=== PATIENT | female | born 1985 | race Caucasian/White ===

== ENCOUNTER 2022-12-16 02:06 | Day surgery (SDC) | payer OTHER ==
[2022-12-16 02:30] VITALS: BMI 40.8
[2022-12-16] MEDS ORDERED: Lactated Ringer's 500 ML IV SCH (03:15)
== END 2022-12-16 05:00 | disposition home or self-care (01) ==
LOC: CSHLD/OP 02:06
PROVIDERS: ATTEND Obstetrics & Gynecology
DX: O46.93 Antepartum hemorrhage, unspecified, third trimester (principal); O99.891 Other specified diseases and conditions complicating pregnancy; M54.50 Low back pain, unspecified; O99.343 Other mental disorders complicating pregnancy, third trimester; F43.10 Post-traumatic stress disorder, unspecified; F53.1 Puerperal psychosis; O24.419 Gestational diabetes mellitus in pregnancy, unspecified control; O34.211 Maternal care for low transverse scar from previous cesarean delivery; O36.8330 Maternal care for abnormalities of the fetal heart rate or rhythm, third trimester, not applicable or unspecified; R00.0 Tachycardia, unspecified; O23.593 Infection of other part of genital tract in pregnancy, third trimester; B37.31 Acute candidiasis of vulva and vagina; Z3A.32 32 weeks gestation of pregnancy; Z79.82 Long term (current) use of aspirin; Z79.899 Other long term (current) drug therapy; Z22.330 Carrier of Group B streptococcus
CPT/HCPCS: 36415; 80053; 81001; 85025; 87086; 87480; 87510; 87660; 96360; 99284

== ENCOUNTER 2023-02-01 16:26 | Inpatient (IN) | payer OTHER ==
[2023-02-01] MEDS ORDERED: hydrALAZINE 20 MG/ML VIAL SLOW IVP PRN (16:49)
[2023-02-01] MEDS ORDERED: Acetaminophen 500 MG TAB PO SCH (18:15)
[2023-02-01] MEDS ORDERED: Cyclobenzaprine 10 MG TAB PO SCH (18:15)
[2023-02-01 19:13] LABS: Bilirubin Neg (Negative); Blood, Urine Negative (Negative); Clarity Clear (Clear); Glucose, Urine (Dipstick) Normal (Negative); Ketone, Urine 15 mg/dL (Negative); Leukocyte Negative (Negative); Nitrite Negative (Negative); Protein, Urine (Dipstick) 15 mg/dl (Neg-Trace); Urobilinogen Normal mg/dL (Less than 2)
[2023-02-01 19:35] LABS: Bacteria/HPF 1+ HPF (None Seen); CAUTI Indications for Culture Pregnancy; Calcium Oxalate Crystals Rare HPF (None Seen); Mucous/LPF 2+ LPF (<2+); RBC/HPF 0-3 HPF (0-3); Squamous Epithelial 0-3 HPF (0-3); WBC/HPF 0-3 HPF (0-3)
[2023-02-01 19:36] LABS: Urine Culture Reflex Yes Yes
[2023-02-01 20:58] VITALS: BMI 40.6
[2023-02-01] MEDS ORDERED: Lorazepam 2 MG/ML VIAL SLOW IVP PRN (21:09)
[2023-02-01] MEDS ORDERED: Famotidine/PF 20 mg/2ml Vial SLOW IVP PRN (21:09)
[2023-02-01] MEDS ORDERED: Calcium Gluc 4.6 MEQ/10 ML (100 MG/ML) SLOW IVP PRN (21:09)
[2023-02-01] MEDS ORDERED: Carboprost 250 MCG/ML AMP IM PRN (21:09)
[2023-02-01] MEDS ORDERED: Bicitra 30 ML UDCUP PO PRN (21:09)
[2023-02-01] MEDS ORDERED: Promethazine HCl 25 MG/ML VIAL IM PRN ×2 (21:09→23:43)
[2023-02-01] MEDS ORDERED: Tranexamic Acid 1,000 MG/10 ML VIAL IVP PRN (21:09)
[2023-02-01] MEDS ORDERED: Ondansetron PF 4 MG/2 ML Vial IVP PRN ×3 (21:09→23:43)
[2023-02-01] MEDS ORDERED: Misoprostol 200 MCG TAB PR PRN (21:09)
[2023-02-01] MEDS ORDERED: Docusate 100 MG CAP PO PRN (21:09)
[2023-02-01] MEDS ORDERED: Oxytocin 30 units/NS 500 ML 500 ML IV SCH (21:15)
[2023-02-01] MEDS ORDERED: CEFAZOLIN 2 GM in Sodium Chloride 0.9% 100 ML IVPB SCH (21:15)
[2023-02-01] MEDS ORDERED: Azithromycin 500 MG in Sodium Chloride 0.9% 250 ML 250 ML IVPB SCH (21:30)
[2023-02-01 22:05] LABS: Hematocrit 36.6 % (34.9-44.5); Hemoglobin 12.2 g/dL (12.0-15.5); Mean Corpuscular HGB CONC 33.3 g/dL (32.0-36.0); Mean Corpuscular Hemoglobin 29.8 pg (27.0-33.0); Mean Corpuscular Volume 89.5 fl (81.6-98.3); Mean Platelet Volume 10.9 fl (7.4-10.4); Platelet Count 201 10x3/uL (150-450); RBC Distribution Width 13.7 % (11.5-14.5); Red Blood Cell (RBC) Count 4.09 10x6/uL (3.90-5.03); White Blood Cell (WBC) Count 8.1 10x3/uL (3.5-10.5)
[2023-02-01] MEDS ORDERED: Oxytocin 10 UNITS/ML VIAL ONE (22:12)
[2023-02-01] MEDS ORDERED: Morphine PF 10 MG/10 ML VIAL ONE (22:12)
[2023-02-01] MEDS ORDERED: fentaNYL 50 mcg/mL 1 mL Vial ONE (22:12)
[2023-02-01 22:13] LABS: Glucose 76 mg/dL (70-105)
[2023-02-01] MEDS ORDERED: PHENYLEPHRINE-NS 100 MCG/ML 10 ML SYRINGE ONE (22:30)
[2023-02-01] MEDS ORDERED: Ondansetron PF 4 MG/2 ML Vial ONE (22:39)
[2023-02-01] MEDS ORDERED: Moisturizing Cream (Eucerin) 113 GM JAR TOP PRN (23:43)
[2023-02-01] MEDS ORDERED: HYDROmorphone 0.5 MG/0.5 ML SYRINGE SLOW IVP PRN (23:43)
[2023-02-01] MEDS ORDERED: Meperidine HCl/PF 25 MG/ML VIAL SLOW IVP PRN (23:43)
[2023-02-01] MEDS ORDERED: Promethazine HCl 25 MG SUPP PR PRN (23:43)
[2023-02-01] MEDS ORDERED: Naloxone HCl 0.4 mg/ml Vial IV PRN (23:43)
[2023-02-01] MEDS ORDERED: Naloxone HCl 0.4 mg/ml Vial IVP PRN ×2 (23:43)
[2023-02-01] MEDS ORDERED: fentaNYL 50 mcg/mL 1 mL Vial SLOW IVP PRN (23:43)
[2023-02-01] MEDS ORDERED: Ketorolac Tromethamine 30 MG/ML VIAL IVP SCH (23:45)
[2023-02-01] MEDS ORDERED: Communication Order-Pharmacy FS SCH (23:45)
[2023-02-01 23:49] LABS: Syphilis Antibody Nonreactive (Nonreactive); Syphilis Antibody Index 0.04 S/CO (<1.00 Non-Reactive)
[2023-02-01 23:50] LABS: HBSAg Index 0.16 S/CO (0-0.99); Hep B Surf Ag - L&D Non-Reactive S/CO (NonReactive)
[2023-02-02] MEDS: diphenhydrAMINE 50 MG/ML VIAL IVP PRN ×3 (00:27→10:07)
[2023-02-02] MEDS ORDERED: Ondansetron PF 4 MG/2 ML Vial IVP PRN (01:07)
[2023-02-02] MEDS ORDERED: Simethicone Chewable 80 MG TAB PO PRN (01:07)
[2023-02-02] MEDS ORDERED: Lanolin Ointment 7 GM TUBE TOP PRN (01:07)
[2023-02-02] MEDS ORDERED: diphenhydrAMINE 25 MG CAP PO PRN (01:07)
[2023-02-02] MEDS ORDERED: hydrALAZINE 20 MG/ML VIAL SLOW IVP PRN (01:07)
[2023-02-02] MEDS ORDERED: Boostrix 0.5 ML (Tdap) VIAL (>/=7 yrs of age) IM ONE (01:07)
[2023-02-02] MEDS ORDERED: Bisacodyl 10 MG SUPP PR PRN (01:07)
[2023-02-02] MEDS: Ketorolac Tromethamine 30 MG/ML VIAL IVP PRN ×4 (03:30→22:08)
[2023-02-02 06:18] LABS: Hematocrit 33.1 % (34.9-44.5); Mean Corpuscular HGB CONC 33.2 g/dL (32.0-36.0); Mean Corpuscular Hemoglobin 30.1 pg (27.0-33.0); Mean Corpuscular Volume 90.7 fl (81.6-98.3); Mean Platelet Volume 11.2 fl (7.4-10.4); Platelet Count 172 10x3/uL (150-450); RBC Distribution Width 13.7 % (11.5-14.5); Red Blood Cell (RBC) Count 3.65 10x6/uL (3.90-5.03); White Blood Cell (WBC) Count 9.8 10x3/uL (3.5-10.5)
[2023-02-02] MEDS: Ferrous Sulfate 325 MG TAB PO SCH ×2 (07:32→19:19)
[2023-02-02] MEDS: Prenatal Vitamin 1 TAB PO SCH (08:23)
[2023-02-03] MEDS: HYDROcodone/Acetaminophen 5/325 mg Tablet PO PRN ×4 (03:03→21:32)
[2023-02-03] MEDS: Ibuprofen 800 MG TAB PO SCH ×3 (05:35→21:32)
[2023-02-03] MEDS: Acetaminophen 325 MG TAB PO SCH ×3 (08:32→20:11)
[2023-02-03] MEDS: Ferrous Sulfate 325 MG TAB PO SCH (08:33)
[2023-02-03] MEDS: Prenatal Vitamin 1 TAB PO SCH (09:07)
[2023-02-03] MEDS: Labetalol HCl 100 MG TAB PO SCH (09:07)
[2023-02-03] MEDS ORDERED: HYDROcodone/Acetaminophen 5/325 mg Tablet PO PRN (11:45)
[2023-02-04] MEDS: Ibuprofen 800 MG TAB PO SCH (05:27)
[2023-02-04] MEDS: HYDROcodone/Acetaminophen 5/325 mg Tablet PO PRN (05:27)
[2023-02-04 07:38] VITALS: BP 147/80; TEMP 98.4
[2023-02-04] MEDS: Acetaminophen 325 MG TAB PO SCH ×2 (07:54→08:31)
[2023-02-04] MEDS: Prenatal Vitamin 1 TAB PO SCH (08:31)
[2023-02-04] MEDS: Labetalol HCl 100 MG TAB PO SCH (08:49)
[2023-02-04] MEDS: Ferrous Sulfate 325 MG TAB PO SCH (08:49)
== END 2023-02-04 11:40 | disposition home or self-care (01) | DRG 787 ==
LOC: CSHLD/OP 16:26 → CSHLD 21:15 → CSHPP 02-02 01:25
PROVIDERS: ADMIT Obstetrics & Gynecology; ATTEND Obstetrics & Gynecology
PROC: 10D00Z1 Extraction of Products of Conception, Low, Open Approach (ICD-10-PCS; principal; 2023-02-01)
DX: O24.420 Gestational diabetes mellitus in childbirth, diet controlled (principal); O10.92 Unspecified pre-existing hypertension complicating childbirth; Z37.0 Single live birth; O99.824 Streptococcus B carrier state complicating childbirth; Z3A.38 38 weeks gestation of pregnancy; O34.211 Maternal care for low transverse scar from previous cesarean delivery
CPT/HCPCS: 36415; 36416; 51702; 81001; 82947; 85027; 86780; 86850; 86900; 86901; 87077; 87086; 87340; 99285; J1200; J1885; J2274; J2405; J2590; J3010